=== PATIENT | female | born 1965 | race Caucasian/White ===

== ENCOUNTER → 2016-11-24 | Outpatient (CLI) | payer OTHER | LOC: CIMAGING 10:05 | PROVIDERS: ATTEND Physician Assistant Medical | DX: Z12.31 Encounter for screening mammogram for malignant neoplasm of breast (principal) | CPT/HCPCS: G0202 ==

== ENCOUNTER → 2016-12-03 | Outpatient (CLI) | payer OTHER | LOC: FIMAGING 15:19 | PROVIDERS: ATTEND Obstetrics & Gynecology | DX: D25.1 Intramural leiomyoma of uterus (principal); D25.2 Subserosal leiomyoma of uterus; N92.0 Excessive and frequent menstruation with regular cycle; M54.5 Low back pain; N94.10 Unspecified dyspareunia ==

== ENCOUNTER 2017-01-14 08:39 | Observation (INO) | payer OTHER ==
[~2017-01-14 08:39] MED LIST: ALTEPLASE 2 MG VIAL IVP PRN; FLUMAZENIL 0.5 MG/5 ML MDV IVP PRN; GLUCAGON HCL 1 MG VIAL IVP PRN; HEPARIN 10,000 UNIT/10 ML MDV IVP PRN; KETOROLAC 30 MG/1 ML SDV IVP ONE; MEPERIDINE 25 MG/ML SYR IVP PRN; MIDAZOLAM 2 MG/2 ML VIAL IVP PRN; NALOXONE HCL 0.4 MG/ML INJ IVP PRN; NS 1,000 ML IV ONE; PROTAMINE SULFATE 50 MG/5 ML VIAL IVP PRN; SCOPOLAMINE HYDROBROMIDE 1 MG/3 DAYS PATCH TD ONE; fentaNYL 100 MCG/2 ML INJ IVP PRN
--- NOTE | 2017-01-14 09:38 | PDPROPOC ---
Sedation Plan of Care Sedation Plan of Care: vital signs stable, mental status noted, patient educated of risks, benefits, alternatives, patient can tolerate sedation ASA Classification: ASA 1 Planned drugs: fentanyl, midazolam Mallampati Score: Class 2 Mallampati Reference Image: Patient passed 3-3-2 rule?: Yes
--- NOTE | 2017-01-14 09:40 | PDGENHP ---
History & Physical Chief Complaint: SYMTOMATIC FIBROIDS History of Present Illness: HEAVY BLEEDING Pertinent Past, Social, Family History: N/A Relevant Physical Exam: CURRENTLY ON MENSTRATION. NO ABD MASS. PULSES NORMAL Cardiorespiratory Assessment: RRR. CTA
[2017-01-14] MEDS ORDERED: *PHM DO NOT USE-DEXAMETHASONE 0.2 MG/ML IV PED/NEWBORN SYR IV ONE (09:43)
[2017-01-14] MEDS ORDERED: NALOXONE HCL 0.4 MG/ML INJ IVP PRN (09:45)
[2017-01-14] MEDS ORDERED: HYDROmorphONE/DILAUDID 6 MG/30 ML PCA IV PRN (09:45)
[2017-01-14] MEDS ORDERED: DEXAMETHASONE 10 MG/ML VIAL ONE (09:48)
[2017-01-14] MEDS ORDERED: fentaNYL 100 MCG/2 ML INJ ONE ×2 (10:00→11:29)
[2017-01-14] MEDS ORDERED: DEXAMETHASONE 10 MG/ML VIAL IVP ONE (10:00)
[2017-01-14] MEDS ORDERED: MIDAZOLAM 2 MG/2 ML VIAL ONE ×2 (10:01→11:30)
[2017-01-14] MEDS ORDERED: ONDANSETRON 4 MG/2 ML VIAL ONE (10:28)
[2017-01-14] MEDS ORDERED: IOPAMIDOL (ISOVUE-300) 100 ML BTL ONE (11:24)
[2017-01-14] MEDS ORDERED: MAGNESIUM HYDROXIDE 30 ML UDCUP PO PRN (13:46)
[2017-01-14] MEDS ORDERED: oxyCODONE IR 5 MG TAB PO PRN (13:46)
[2017-01-14] MEDS ORDERED: LACTULOSE 20 GM/30 ML UDCUP PO PRN (13:46)
[2017-01-14] MEDS ORDERED: PROMETHAZINE HCL 25 MG/ML INJ IVP PRN (13:46)
[2017-01-14] MEDS ORDERED: POLYETHYLENE GLYCOL 3350 17 GM PKT PO PRN (13:46)
[2017-01-14] MEDS ORDERED: BISACODYL 10 MG SUPP PR PRN (13:46)
[2017-01-14] MEDS ORDERED: ONDANSETRON 4 MG/2 ML VIAL IVP PRN (13:46)
--- NOTE | 2017-01-14 13:46 | PDRADPN ---
Radiology Procedure Note Date of Procedure: 01/14/17 Radiologist: Paulina Cordova Anesthesia: IV Sedation (fentanyl and versed) Pre-op Diagnosis: symtomatic fibroids Post-op Diagnosis: same Indication: significant symptoms Procedure: UFE Finding(s): large, L>R supply of fibroid Inf/Abcess present in the surg proc area at time of surgery?: No Complications: none
[2017-01-14] MEDS ORDERED: NS 1,000 ML IV SCH (14:00)
--- NOTE | 2017-01-14 19:21 | SOAPPROG ---
SOAP Progress Note Assessment/Plan: Assessment: Doing very well post UFE. Plan: Transition from SPORTS MANAGEMENT INTERN to oral pain meds. D/C delgado in AM. Change sequential stockings to knee height compressions. 01/14/17 19:19 Subjective: Doesn't have much pain. Doing well. "Pressure" in the abd. Objective: Vital Signs Temp Pulse Resp BP Pulse Ox 36.0 C 59 L 12 113/77 95 01/14/17 18:31 01/14/17 18:31 01/14/17 18:31 01/14/17 18:31 01/14/17 18:31 Laboratory Results 01/14/17 11:17 01/13/17 01/14/17 01/15/17 05:59 05:59 05:59 Intake Total 900 Output Total 200 Balance 700 RT groin without hematoma. Pulses normal. ICD10 Worksheet Patient Problems: Problems Problem Status Onset Uterine fibroid Acute - ICD10 Problem Qualifiers (1) Uterine fibroid Qualifiers: Uterine leiomyoma location: submucous Qualified Code(s): D25.0 - Submucous leiomyoma of uterus
--- NOTE | 2017-01-14 19:21 | SOAPPROG ---
SOAP Progress Note Assessment/Plan: Assessment: Doing very well post UFE. Plan: Transition from TELLER COORDINATOR to oral pain meds. D/C delgado in AM. Change sequential stockings to knee height compressions. 01/14/17 19:19 Subjective: Doesn't have much pain. Doing well. "Pressure" in the abd. Objective: Vital Signs Temp Pulse Resp BP Pulse Ox 36.0 C 59 L 12 113/77 95 01/14/17 18:31 01/14/17 18:31 01/14/17 18:31 01/14/17 18:31 01/14/17 18:31 Laboratory Results 01/14/17 11:17 01/13/17 01/14/17 01/15/17 05:59 05:59 05:59 Intake Total 900 Output Total 200 Balance 700 RT groin without hematoma. Pulses normal. ICD10 Worksheet Patient Problems: Problems Problem Status Onset Uterine fibroid Acute - ICD10 Problem Qualifiers (1) Uterine fibroid Qualifiers: Uterine leiomyoma location: submucous Qualified Code(s): D25.0 - Submucous leiomyoma of uterus
--- NOTE | 2017-01-14 19:21 | SOAPPROG ---
SOAP Progress Note Assessment/Plan: Assessment: Doing very well post UFE. Plan: Transition from MANDREL MAKER to oral pain meds. D/C delgado in AM. Change sequential stockings to knee height compressions. 01/14/17 19:19 Subjective: Doesn't have much pain. Doing well. "Pressure" in the abd. Objective: Vital Signs Temp Pulse Resp BP Pulse Ox 36.0 C 59 L 12 113/77 95 01/14/17 18:31 01/14/17 18:31 01/14/17 18:31 01/14/17 18:31 01/14/17 18:31 Laboratory Results 01/14/17 11:17 01/13/17 01/14/17 01/15/17 05:59 05:59 05:59 Intake Total 900 Output Total 200 Balance 700 RT groin without hematoma. Pulses normal. ICD10 Worksheet Patient Problems: Problems Problem Status Onset Uterine fibroid Acute - ICD10 Problem Qualifiers (1) Uterine fibroid Qualifiers: Uterine leiomyoma location: submucous Qualified Code(s): D25.0 - Submucous leiomyoma of uterus
[2017-01-14] MEDS: KETOROLAC 30 MG/1 ML SDV IVP SCH (20:21)
[2017-01-14] MEDS ORDERED: QUEtiapine FUMARATE 25 MG TAB PO SCH ×2 (21:00)
[2017-01-15] MEDS: KETOROLAC 30 MG/1 ML SDV IVP SCH ×2 (02:20→08:18)
[2017-01-15] MEDS: SENNOSIDES/DOCUSATE SODIUM TAB PO SCH ×2 (04:20→10:12)
[2017-01-15 08:42] VITALS: BP 117/83; PULSE 62; RESP 16; TEMP 96.8; O2SAT 98
[2017-01-15] MEDS ORDERED: buPROPion XL 150 MG TAB PO SCH (09:00)
[2017-01-15] MEDS ORDERED: levOFLOXACIN 500 MG/DEXTROSE 100 ML IV ONE (09:00)
[2017-01-15] MEDS ORDERED: BUPROPION HCL 300 MG PO SCH (09:00)
--- NOTE | 2017-01-15 09:52 | SOAPPROG ---
JAMES Progress Note Assessment/Plan: Assessment: Doing very well post UFE. Plan: Transition from CARDIO CLINICIAN to oral pain meds. D/C delgado in AM. Change sequential stockings to knee height compressions. 01/14/17 19:19 01/15/17 09:52 D/C home this am. Follow up with IR in 2 weeks PPx and discharge instructions given to the patient. Subjective: Sitting up. Has urinated since delgado's been out this am. Has not used CARDIO CLINICIAN since 1am. Does not currently have any pain. Objective: Vital Signs Temp Pulse Resp BP Pulse Ox 36.0 C 62 16 117/83 H 98 01/15/17 08:41 01/15/17 08:41 01/15/17 08:41 01/15/17 08:41 01/15/17 08:41 Laboratory Results 01/14/17 11:17 01/14/17 01/15/17 01/16/17 05:59 05:59 05:59 Intake Total 2000 Output Total 910 Balance 1090 No change in exam. ICD10 Worksheet Patient Problems: Problems Problem Status Onset Uterine fibroid Acute - ICD10 Problem Qualifiers (1) Uterine fibroid Qualifiers: Uterine leiomyoma location: submucous Qualified Code(s): D25.0 - Submucous leiomyoma of uterus
--- NOTE | 2017-01-15 09:52 | SOAPPROG ---
JAMES Progress Note Assessment/Plan: Assessment: Doing very well post UFE. Plan: Transition from FISH NET STRINGER to oral pain meds. D/C delgado in AM. Change sequential stockings to knee height compressions. 01/14/17 19:19 01/15/17 09:52 D/C home this am. Follow up with IR in 2 weeks PPx and discharge instructions given to the patient. Subjective: Sitting up. Has urinated since delgado's been out this am. Has not used FISH NET STRINGER since 1am. Does not currently have any pain. Objective: Vital Signs Temp Pulse Resp BP Pulse Ox 36.0 C 62 16 117/83 H 98 01/15/17 08:41 01/15/17 08:41 01/15/17 08:41 01/15/17 08:41 01/15/17 08:41 Laboratory Results 01/14/17 11:17 01/14/17 01/15/17 01/16/17 05:59 05:59 05:59 Intake Total 2000 Output Total 910 Balance 1090 No change in exam. ICD10 Worksheet Patient Problems: Problems Problem Status Onset Uterine fibroid Acute - ICD10 Problem Qualifiers (1) Uterine fibroid Qualifiers: Uterine leiomyoma location: submucous Qualified Code(s): D25.0 - Submucous leiomyoma of uterus
--- NOTE | 2017-01-15 09:52 | SOAPPROG ---
JAMES Progress Note Assessment/Plan: Assessment: Doing very well post UFE. Plan: Transition from BARREL LOADER to oral pain meds. D/C delgado in AM. Change sequential stockings to knee height compressions. 01/14/17 19:19 01/15/17 09:52 D/C home this am. Follow up with IR in 2 weeks PPx and discharge instructions given to the patient. Subjective: Sitting up. Has urinated since delgado's been out this am. Has not used BARREL LOADER since 1am. Does not currently have any pain. Objective: Vital Signs Temp Pulse Resp BP Pulse Ox 36.0 C 62 16 117/83 H 98 01/15/17 08:41 01/15/17 08:41 01/15/17 08:41 01/15/17 08:41 01/15/17 08:41 Laboratory Results 01/14/17 11:17 01/14/17 01/15/17 01/16/17 05:59 05:59 05:59 Intake Total 2000 Output Total 910 Balance 1090 No change in exam. ICD10 Worksheet Patient Problems: Problems Problem Status Onset Uterine fibroid Acute - ICD10 Problem Qualifiers (1) Uterine fibroid Qualifiers: Uterine leiomyoma location: submucous Qualified Code(s): D25.0 - Submucous leiomyoma of uterus
[2017-01-15] MEDS ORDERED: IBUPROFEN 600 MG TAB PO SCH (12:00)
== END 2017-01-15 12:15 | disposition home or self-care (01) ==
LOC: FIMAGING 08:39 → FOB 15:23
PROVIDERS: ADMIT Radiology Diagnostic Radiology; ATTEND Radiology Diagnostic Radiology
DX: D25.9 Leiomyoma of uterus, unspecified (principal)
CPT/HCPCS: 36247; 37242; 64425; 75736; 99152; 99153; C1769; C1894; G0378; C1760; J1100; J1170; J1644; J1885; J1956; J2250; J2405; J3010; Q9967

== ENCOUNTER → 2017-08-21 | Outpatient (CLI) | payer OTHER | LOC: FIMAGING 12:29 | PROVIDERS: ATTEND Radiology Diagnostic Radiology | DX: D25.9 Leiomyoma of uterus, unspecified (principal); N92.0 Excessive and frequent menstruation with regular cycle; Z98.890 Other specified postprocedural states ==

== ENCOUNTER → 2017-11-27 | Outpatient (CLI) | payer OTHER | LOC: BMCIMAGING 11:13 | PROVIDERS: ATTEND Physician Assistant Medical | DX: Z12.31 Encounter for screening mammogram for malignant neoplasm of breast (principal) ==